=== PATIENT | male | born 1970 | race Caucasian/White ===

== ENCOUNTER 2022-11-05 15:34 | Emergency (ER) | payer BC, SELFPAY ==
[2022-11-05] VITALS (8 sets, daily range): BP systolic 111–153; BP diastolic 62–88; PULSE 74–98; RESP 14–20; TEMP 36.5; O2SAT 95–98; BMI 32.5
--- NOTE | 2022-11-05 15:31 | ECG_ITS ---
APPROVED REPORT Exam: Resting ECG HR:93 bpm ECG Measurements Heart Rate 93 AXES DE 165 P 20 QRSd 93 QRS 20 QT 339 T 44 QTc 389 Conclusion SINUS RHYTHM NORMAL ECG UNCONFIRMED REPORT Electronically signed by : Isidro Roche MD 11/05/2022 21:15:59
--- NOTE | 2022-11-05 15:44 | XR_ITS ---
PROCEDURE INFORMATION: Exam: XR Chest Exam date and time: 11/05/2022 4:07 PM Age: 51 years old Clinical indication: Pain; Chest pressure; Additional info: Chest pain TECHNIQUE: Imaging protocol: Radiologic exam of the chest. Views: 1 view. COMPARISON: CR CLAVR CLAVICLE-RT 04/26/2017 7:09 AM FINDINGS: Lungs: Unremarkable. No consolidation. Pleural spaces: Unremarkable. No pleural effusion. No pneumothorax. Heart/Mediastinum: Unremarkable. No cardiomegaly. Bones/joints: Unremarkable. IMPRESSION: No acute findings.
--- NOTE | 2022-11-05 15:46 | HMH.EDCP ---
Discharge Plan Disposition Patient Disposition: Home, Self-Care Condition: Good Prescriptions Prescriptions: No Action No Known Home Medications Activity Restrictions/Add. Instructions Additional Instructions/Restrictions: Return to the emergency department if you feel worse in any way. Follow-up with your primary care doctor in about 1 week even if you feel normal. Clinical Impressions Clinical Impression: Atypical chest pain Instructions Patient Instructions: DI for Atypical Chest Pain Discharge ED Provider: Jp Gruber Chest Pain HPI General Chief Complaint: Chest Pain Stated Complaint: chest pain Time Seen by Provider: 11/05/22 15:46 Mode of Arrival: Ambulatory Source of Information: Patient History of Present Illness HPI narrative: The patient presents to the emergency department complaining of a near syncopal episode followed by chest tightness. This happened approximately 1 PM today. He was cutting wood with a chainsaw. He has never had the symptoms in the past. He has no history of coronary artery disease. MD complaint: chest pain BLAS Score for Non-Stemi Age of Patient: 50-59 years old Heart Rate: 90-109 bpm Systolic Blood Pressure: 120-139 mmhg Serum Creatinine: 1.20-1.59 mg/dl CHF Killip Class: I-No CHF Other Risk Factors: None Non-Stemi Risk Score: 100 Related Data Home Medications Medication Instructions Recorded Confirmed No Known Home Medications 11/05/22 11/05/22 Allergies Allergy/AdvReac Type Severity Reaction Status Date / Time No Known Allergies Allergy Unverified 09/26/17 15:00 [facility] Disclaimer: The information contained in this section may have been updated after the patient was seen, as this information can be updated by other users. Social History Smoking Status: Never smoker alcohol intake: never current occupational status: employed Travel in the last 8 weeks: None ROS Obtained: Yes All systems reviewed & no additional complaints except as documented Physical Exam General General appearance: alert Head Head exam: atraumatic Eye Eye exam: Present normal appearance and PERRL; Absent scleral icterus ENT ENT exam: Present normal exam Neck Neck exam: Present normal inspection and full ROM; Absent tenderness or meningismus Chest Chest inspection: Present normal inspection and symmetric chest wall rise; Absent tenderness Respiratory Respiratory exam: Present normal lung sounds bilaterally; Absent respiratory distress or accessory muscle use Cardiovascular Cardiovascular exam: Present regular rate, normal rhythm and normal heart sounds Abdominal Exam Abdominal exam: Present soft and normal bowel sounds; Absent distention, tenderness, heel tap sign, Espinoza's sign, Rovsing's sign, tenderness at McBurney's Point or mass Extremities Exam Extremities exam: Present normal inspection and full ROM; Absent calf tenderness Back Exam Back exam: Present normal inspection; Absent tenderness, CVA tenderness (R) or CVA tenderness (L) Neurological Exam Neurological exam: Present alert and oriented X3 Psychiatric Psychiatric exam: Present normal affect and normal mood Skin Skin exam: Present warm, dry, intact and normal color Medical Decision Making Medical Records Medical records reviewed: Yes I reviewed the patient's medical records. Francisco Inquiry Pt receiving controlled substance: No Vital Signs: 11/05/22 15:35 11/05/22 16:00 11/05/22 16:31 Temperature 97.7 F Temperature Source Oral Pulse Rate 89 88 Pulse Rate [Apical] 98 H Respiratory Rate 18 14 14 Blood Pressure 153/88 H 116/71 Blood Pressure [Right Arm] 148/85 H Blood Pressure Mean 109 86 Blood Pressure Mean [Right Arm] 106 Blood Pressure Source [Right Arm] Automatic Cuff Blood Pressure Position [Right Arm] Sitting 02 Sat by Pulse Oximetry 95 96 95 Oxygen Delivery Method Room Air 11/05/22 17:00 11/05/22 17:30 11/05/22 18:00 Temperature Tem
[2022-11-05 16:14] LABS: Anion Gap 10.6 mEq/L (5-15); Blood Urea Nitrogen 17 mg/dl (9-20); Calcium 8.7 mg/dl (8.4-10.2); Carbon Dioxide 25 mmol/L (22.0-30.0); Chloride 106 mmol/L (98-107); Creatinine Clearance Estimated 103 mL/min (50-200); Estimated Glomerular Filt Rate 64 ml/min (>60); GFR (African American) 77 ML/MIN (>60); Glucose 124 mg/dl (74-100); Potassium 3.6 mmoL/L (3.5-5.1); Sodium 138 mmol/L (136-145)
[2022-11-05 16:15] LABS: Basophils # 0.1 K/mm3 (0-0.2); Basophils % 0.6 % (0.1-2.0); Eosinophils # 0.1 K/mm3 (0.0-0.4); Eosinophils % 0.8 % (0.1-12.0); Hematocrit 46.2 % (42.0-52.0); Lymphocytes # 1.3 K/mm3 (0.7-4.5); Lymphocytes % 8.2 % (10-50); Mean Corpuscular HGB Conc 32.5 g/dL (31.8-35.4); Mean Corpuscular Hemoglobin 28.9 pg (27.0-31.2); Mean Corpuscular Volume 88.9 fl (80-94); Mean Platelet Volume 9.7 fl (7.4-10.4); Monocytes # 0.6 K/mm3 (0.1-1.0); Monocytes % 4.1 % (1.7-9.3); Neutrophils # 13.4 K/mm3 (1.8-7.8); Neutrophils % 86.3 % (37.0-80.0); Platelet Count 289 K/mm3 (142-424); Red Blood Count 5.19 M/mm3 (4.60-6.20); Red Cell Distribution Width 13.4 % (11.5-17.5); White Blood Count 15.5 K/mm3 (4.8-10.8)
[2022-11-05 16:19] LABS: MANUAL DIFFERENTIAL MANUAL DIFFERENTIAL (MANUAL DIFF)
[2022-11-05 16:26] LABS: Troponin I 0.02 ng/ml (0.00-0.034)
[2022-11-05 17:01] LABS: Lymphocytes % 9 % (10-50); Monocytes % 7 % (2-9); Neutrophils % 84 % (42-76); Total Cells Counted 100
[2022-11-05 17:04] LABS: Platelet Estimate Normal; RBC Morphology Normal
--- NOTE | 2022-11-05 19:09 | PC.NURSE ---
report given to carlton chase and carlton giraldo at shift change
[2022-11-05 19:39] LABS: Troponin I 0.02 ng/ml (0.00-0.034)
== END 2022-11-05 19:51 | disposition home or self-care (01) ==
PROVIDERS: Emergency Provider Emergency Medicine; PCP Family Medicine
DX: R07.89 Other chest pain (principal)
CPT/HCPCS: 36415; 71045; 80048; 84484; 85007; 85025; 93005; 99285

== ENCOUNTER → 2022-11-07 10:37 | Outpatient (CLI) | payer BC, SELFPAY ==
[2022-11-07 12:16] LABS: Alanine Aminotransferase 28 U/L (12-78); Albumin Level 4.3 g/dl (3.5-5.0); Alkaline Phosphatase 56 U/L (38-126); Aspartate Amino Transferase 31 U/L (17-59); Bilirubin,Direct 0.2 mg/dl (0.0-0.4); Bilirubin,Indirect 0.3 mg/dL (0.0-0.9); Bilirubin,Total 0.5 mg/dl (0.2-1.3); Bilirubin,Unconjugated 0.3 mg/dL (0.0-1.1); Chol/HDL Ratio 4.6 (1-3.5); Cholesterol 188 mg/dl (140-200); HDL Cholesterol 41 mg/dl (40-60); Total Protein,Serum 7.1 g/dl (6.3-8.2); Triglycerides 226 mg/dl (30-150); VLDL Cholesterol 45 mg/dL (0-40)
[2022-11-07 12:28] LABS: Direct LDL Cholesterol 98.31 mg/dL (100-129)
== END ==
PROVIDERS: PCP Family Medicine; Visit Provider Nurse Practitioner
DX: R07.89 Other chest pain (principal); R55 Syncope and collapse; R94.31 Abnormal electrocardiogram [ECG] [EKG]
CPT/HCPCS: 36415; 80061; 80076

== ENCOUNTER → 2022-11-17 06:08 | Outpatient (CLI) | payer BC, SELFPAY ==
--- NOTE | 2022-11-17 06:10 | CA_ITS ---
APPROVED REPORT Exam: Exercise Treadmill Technologist: Nereyda Flores, Ht: 5 ft 9 in Wt: 225 lbs BSA: 2.17 m2 HR: 62 bpm BP: 128/77 mmHg Medical History Medications: Omeprazole,,,,, Stress Test Details Test: Wallace HR Resting HR: 68 bpm Max Heart Rate (APMHR): 168.638226 bpm Max HR Achieved: 153 bpm Target HR (85% APMHR): 142.006449 bpm % of APMHR: 91.07 Recovery HR: 89 bpm BP Resting BP: 122.0/83.0 mmHg Max BP: 207.0/82.0 mmHg Recovery BP: 149.0/86.0 mmHg ECG Clinical Exercise duration: 09:00 min Highest Stage Achieved: III Exercise capacity: 10.1 METs Stress ECG Conclusion Symptoms: SOA w/ exercise. No chest pain. Arrhythmias/Ectopy: PVC noted Test Summary REST . . . . . . . Sitting REST . . . . . . . Standing REST 08:16 0.0 0.0 68 . 122/ 83 . . Stage 1 01:00 10.0 1.7 91 . . . . Stage 1 02:00 10.0 1.7 96 . . . . Stage 1 03:00 10.0 1.7 98 . 150/ 80 . . Stage 2 01:00 12.0 2.5 109 . . . . Stage 2 02:00 12.0 2.5 117 . . . . Stage 2 03:00 12.0 2.5 120 . 172/ 88 . . Stage 3 01:00 14.0 3.4 141 . . . . Stage 3 . . . . . . . Cardiolite injected Stage 3 02:00 14.0 3.4 147 . . . . Stage 3 03:00 14.0 3.4 152 . . . Stop exercise at 09:00 RECOVERY 01:00 0.0 0.0 126 . . . . RECOVERY 02:00 0.0 0.0 107 . . . . RECOVERY 03:00 0.0 0.0 95 . 207/ 82 . . RECOVERY 04:00 0.0 0.0 93 . 166/ 79 . . RECOVERY 05:00 0.0 0.0 90 . 166/ 79 . . RECOVERY 06:00 0.0 0.0 88 . 156/ 83 . . RECOVERY 06:26 0.0 0.0 90 . 149/ 86 . . Electronically signed by : Saturnino Enriquez MD 11/18/2022 09:38:47
--- NOTE | 2022-11-17 06:10 | NM_ITS ---
APPROVED REPORT Exam: Nuclear Stress Test Indication: CHEST PAIN..SHORT OF BREATH Patient Location: Outpatient Stress Tech: Nereyda Ambrose [place] Tech:BECCA Fallon RT(R)(N) Ht: 5 ft 9 in Wt: 220 lbs HR: 68 bpm BP: 122/83 mmHg BSA: 2.15 m2 TID: 0.94 BMI: 32.4 History: CHEST PAIN..SHORT OF BREATH Procedure: Patient exercised on Wallace protocol 9 minutes and sec, resting heart rate 68 bpm, resting blood pressure 122/83 mmHg, with exercise maximum heart rate achived was 153 bpm which is 91 % of the maximum predicted heart rate and blood pressure was 207/82 mmHg. Patient denied any complaint of chest pain. Patient has Good exercise capacity, achieved 10.1 METs of workload on treadmill, the blood pressure response to exercise was Hypertensive. Electrocardiogram Resting electrocardiogram shows sinus rhythm, with exercise there is less than 1.[address] segment depression noted from the baseline EKG. The EKG portion of the exercise Myoview is negative for ischemia. Cardiac Stress and Resting SPECT Images: Cardiac Stress and Resting SPECT images were obtained using technetium 99m Myoview 32.5 mCi stress and 10.98 mCi at rest. Gated SPECT analysis of segmental wall motion and calculation of the ejection fraction also done. Prone images were also obtained. Cardiac stress and rest SPECT images show uniform myocardial activity without segmental perfusion abnormality, compared to dry ejection fraction is 58% with no regional wall motion abnormality, right ventricle is mildly enlarged with normal contractility. Conclusion: 1. The EKG portion of the exercise Myoview is negative for ischemia, patient has good exercise capacity achieved 10.1 METs of workload on treadmill, the blood pressure response to exercise was hypertensive, there was no exercise-induced chest discomfort. 2. No scintigraphic evidence of reversible ischemia seen, computer drive ejection fraction is 58% with no regional wall motion abnormality, right ventricle is mildly enlarged with normal contractility. 3. Normal myocardial perfusion imaging except for hypertensive blood pressure response with exercise and right ventricular dilatation seen on perfusion imaging. Electronically signed by : Saturnino Enriquez MD 11/18/2022 09:49:11
--- NOTE | 2022-11-17 06:10 | CA_ITS ---
APPROVED REPORT EXAM: Comprehensive 2D, Doppler, and color-flow Echocardiogram Nibbler Operator: Ashley Low RVT Ht: 5 ft 9 in Wt: 225lbs BSA: 2.17 BP: 125/87 mmHg Indications: CP,ABN EKG,SOA 2D Dimensions LVOT 2.17 cm (M/F) 1.5-2.5 LA Volume 38.10 mL LA Volume Index 17.56 mL/m2 (M/F) 16-34 M-Mode Dimensions RVDd 3.49 cm (0.9-2.6) LA Diam 3.56 cm (1.9-4.0) LVDd 4.67 cm (3.5-5.7) Ao Diam 3.13 cm (2.0-3.7) LVDs 3.00 cm (3.5-5.7) IVSd 0.76 cm (0.6-1.1) PWd 0.72 cm (0.6-1.1) EF (Teich) 65.30% FS 35.80% EDV (Teich) 100.80 mL TAPSE 2.30 (<1.7) ESV (Teich) 35.00 mL LV Diastology E Decel Time 150.00 (160-240 msec) E/A Ratio 0.8 MED E' 6.40 (< 7 cm/sec) E'/MED E' Ratio 10.25 (>14) LAT E' 7.80 (<10 cm/sec) E/LAT E' Ratio 8.41 (>14) Aortic Valve AO Peak GR. 3.80 mmHg Mitral Valve MV E Max Sai. 66.00 (40-130 cm/s) MV A Velocity 84.00 (40-130 cm/s) E/A Ratio 0.78 MV Decel. Time 150.00 (160-240 ms) MV PHT 44.00 ms Pulmonary Valve PV Peak Velocity 81.00 (50-150 cm/s) Left Ventricle Left atrium is mildly enlarged, left medical normal size, mild concentric left ventricular hypertrophy, estimated ejection fraction of 55% with no regional wall motion abnormality. Grade 1 diastolic dysfunction seen without tissue Doppler evidence of restricted atrial pressure. Right Ventricle Right atrium and right ventricular normal size and contractility. Aortic Valve Aortic valve is grossly normal there is no aortic stenosis aortic insufficiency. Mitral Valve Motor alaniz grossly normal, there is trace mitral regurgitation. Tricuspid Valve Tricuspid valve grossly normal, there is trace tricuspid regurgitation, tricuspid regurgitation jet plus is inadequate for calculation of the right ventricular systolic pressure. Pulmonic Valve Pulmonic valve is poorly visualized. Great Vessels Aortic root is normal size. Inferior vena cava is poorly visualized. Pericardium No significant pericardial effusion noted. Conclusion 1. Mildly enlarged left atrium, normal left ventricular size, mild concentric left ventricular hypertrophy, estimated ejection fraction of 45% with no regional wall motion abnormality, grade 1 diastolic dysfunction seen without tissue Doppler evidence of restricted atrial pressure. 2. Trace mitral and tricuspid regurgitation. 3. No significant pericardial effusion noted. 4. Inferior vena cava is poorly visualized. Electronically signed by : Saturnino Enriquez MD 11/18/2022 17:39:25
== END ==
LOC: RAD 06:10
PROVIDERS: PCP Family Medicine; Visit Provider Nurse Practitioner
DX: R07.89 Other chest pain (principal); R55 Syncope and collapse; R94.31 Abnormal electrocardiogram [ECG] [EKG]
CPT/HCPCS: 78452; 93017; 93306; A9502

== ENCOUNTER 2023-05-11 10:18 | Emergency (ER) | payer BC, SELFPAY ==
[2023-05-11 10:19] VITALS: BP 136/90; PULSE 60; RESP 18; TEMP 36.8; O2SAT 98; BMI 32.5
--- NOTE | 2023-05-11 11:00 | EXP.UTC ---
Discharge Plan Disposition Patient Disposition: Home, Self-Care Condition: Good Prescriptions Prescriptions: New cyclobenzaprine 10 mg Tablet 10 mg PO BID PRN (Reason: Muscle Spasm) Qty: 20 0RF methylprednisolone 4 mg Tablets,Dose Pack 4 mg PO DIRECTED Qty: 21 0RF No Action omeprazole 20 mg tablet,delayed release (DR/EC) 20 mg PO DAILY losartan 50 mg tablet 50 mg PO DAILY Qty: 30 2RF Referrals Follow up/Referrals: Provider,Referral, MD [Primary Care Provider] - See instructions Activity Restrictions/Add. Instructions Additional Instructions/Restrictions: Go home and rest. It would be best if you rested tomorrow too. No heavy lifting. No twisting. Take the oral medications as directed. The muscle relaxer (cyclobenzaprine--Flexeril) will make you drowsy, so don't drive or operate heavy machinery after taking it. If you have other muscle relaxers that you take, make sure you don't take both. This would be too much. Don't start the oral steroids (medrol dose pack) until tomorrow, since you had the shots in here today. Follow up with your regular doctor. GO TO THE ER FOR ANY WORSENING SYMPTOMS OR CONCERN, ESPECIALLY BOWEL OR BLADDER ISSUES, SADDLE AREA NUMBNESS, FEVER, ETC Clinical Impressions Clinical Impression: Bursitis of right shoulder, Neck pain Stand Alone Forms Stand Alone Forms: Work/School Release Instructions Patient Instructions: Ketorolac, Methylprednisolone Injection Discharge ED Provider: Nima Vargas [facility] General Stated complaint: Rt shoulder pain, no accident Time Seen by Provider: 05/11/23 11:00 History of Present Illness Provider Complaint: He c/o right shoulder pain for the past 3 days. He denies any injury. He has had multiple episodes of similar pain in the past r/t an old rotator cuff injury and surgery. Related Data Home Medications Medication Instructions Recorded Confirmed omeprazole 20 mg tablet,delayed 20 mg PO DAILY 11/07/22 11/23/22 release Previous Rx's Medication Instructions Recorded losartan 50 mg tablet 50 mg PO DAILY #30 tabs 11/23/22 cyclobenzaprine 10 mg tablet 10 mg PO BID PRN Muscle Spasm #20 05/11/23 tabs methylprednisolone 4 mg tablets in 4 mg PO DIRECTED #21 tabs 05/11/23 a dose pack Allergies Allergy/AdvReac Type Severity Reaction Status Date / Time No Known Allergies Allergy Unverified 11/23/22 09:01 [facility] Disclaimer: The information contained in this section may have been updated after the patient was seen, as this information can be updated by other users. Medical History (Updated 05/11/23 @ 11:31 by Nima Vargas APRN) Abnormal electrocardiogram [ECG] [EKG] Chest pain Hypertension Near syncope Social History Smoking Status: Never smoker alcohol intake: never current occupational status: employed Travel in the last 8 weeks: None ROS Obtained: Yes All systems reviewed & no additional complaints except as documented Constitutional Constitutional: Denies chills and Denies fever(s) Eyes Eyes: Denies eye discharge ENT Ears, Nose, Mouth, and Throat: Denies dizziness, Denies otalgia and Denies sore throat Cardiovascular Cardiovascular: Denies chest pain Respiratory Respiratory: Denies shortness of breath, Denies chest congestion, Denies cough, Denies stridor and Denies wheezing Gastrointestinal Gastrointestingal: Denies nausea or vomiting Musculoskeletal Musculoskeletal: Reports as per HPI Integumentary/Breasts Skin/Breast: Denies rash Neurologic Neurologic: Denies dizziness and Denies paresthesias Allergic/Immunologic Allergic/Immunologic: Denies wheezing Physical Exam General General appearance: alert and in no apparent distress Head Head exam: atraumatic, normocephalic and normal inspection Eye Eye exam: Present normal appearance, PERRL and EOMI ENT ENT exam: Present normal exam, normal oropharynx,
[2023-05-11 11:37] VITALS: BP 136/90; PULSE 60; RESP 18; TEMP 36.8; O2SAT 98
== END 2023-05-11 11:38 | disposition home or self-care (01) ==
PROVIDERS: Emergency Provider Nurse Practitioner Family
DX: M75.51 Bursitis of right shoulder (principal); M54.2 Cervicalgia; I10 Essential (primary) hypertension
CPT/HCPCS: 96372; 99204; 99212; G0463

== ENCOUNTER 2023-12-20 10:06 | Day surgery (SDC) | payer BC, SELFPAY ==
[2023-12-19 14:06] VITALS: BMI 33.2
[2023-12-20] VITALS (7 sets, daily range): BP systolic 101–135; BP diastolic 56–86; PULSE 61–77; RESP 16–18; TEMP 36.1–36.9; O2SAT 95–99
[2023-12-20] MEDS: LACTATED RINGERS 1000ML 1,000 ML 25 ML IV (11:17)
--- NOTE | 2023-12-20 12:02 | EXP.ANES.CKL ---
[facility] Disclaimer: The information contained in this section may have been updated after the patient was seen, as this information can be updated by other users. Medical History Hypertension Chest pain Abnormal electrocardiogram [ECG] [EKG] Near syncope Surgical History History of colonoscopy History of repair of right rotator cuff Family History Other No significant family history Social History Smoking Status: Never smoker alcohol intake: never substance use type: denies use current occupational status: employed Travel in the last 8 weeks: None [facility] Anesthesia Checklist Patient Identification Patient Identification: Arm Band and Verbal (Name & ) Structural Data Admitted From: Home Planned Operative Procedure/s: EGD/Colonoscopy Consent for Planned Operative Procedure(s) Verified: Yes NPO Status Verified Time NPO: 00:00 Additional verifications Anesthesia Reactions: No Airway Assessment Mallampati Score:: Class III C-Spine Mobility Assessed: Yes TMJ Mobility Assessed: Yes Dentition: Good Dentition Neurological Assessment Level of Consciousness: Awake Hx Seizures: No Numbness or tingling in extremities: No Anesthesia Plan Anesthesia Risk discussed: Yes Anesthesia Plan: Verified ASA Class: II Anesthesia Type: MAC
--- NOTE | 2023-12-20 12:35 | P.PCN_ITS ---
Procedure: Date: 12/20/23 Patient Date of :: 1970 Procedure Performed:: EGD Indications:: The patient is a 53-year-old who presents for EGD evaluation of chronic heartburn. Performing Provider:: Steve Caban MD Referring Provider:: Jen Ruiz APRN. Gastroenterology Sedation:: See RN records Procedure:: After placing the patient in the left lateral decubitus position, the colonoscopy was gently inserted into the rectum and under direct visualization advanced to the cecum which was identified by transillumination in the right lower quadrant, identification of the ileocecal valve, appendiceal orifice, and cecal strap. Color, texture, mucosa, and anatomy of the colon were carefully examined with the scope. Findings:: There was finding of Zimmerman's esophagus in the distal esophagus. Baldwin classification C1M3. Biopsies were obtained with a cold forceps for histology. The GE junction was measured at 35 cm there is a small hiatal hernia. There was inflammation of the stomach characterized by mild inflammation in the antrum and body. There were a few small fundic gland polyps in the body of the stomach. Biopsies were obtained with a cold forceps. The duodenum appeared normal Impression Zimmerman's esophagus. C1 M3 Small hiatal hernia Mild fundic gland polyp Mild gastritis Recommendations:: Await pathology result Continue prescribed PPI once daily Recommend a repeat EGD in 3 years Complications:: None Estimated blood obtained (mL): 0 Colonoscopy Component Colonoscopy Component Was a colonoscopy performed during today's procedure?: No
--- NOTE | 2023-12-20 12:40 | HMH.SCOPE ---
Procedure: Date: 12/20/23 Patient Date of :: 1970 Procedure Performed:: Colonoscopy Indications:: The patient is a 53-year-old who presents for surveillance colonoscopy for having a history of polyps in the past. Patient reports having had a colonoscopy more than 10 years ago and had polyps removed. There is no colon cancer in the family. Performing Provider:: Steve Caban MD Referring Provider:: Jen Ruiz APRN. Gastroenterology Sedation:: See RN records Procedure:: After placing the patient in the left lateral decubitus position, the colonoscopy was gently inserted into the rectum and under direct visualization advanced to the cecum which was identified by transillumination in the right lower quadrant, identification of the ileocecal valve, appendiceal orifice, and cecal strap. Color, texture, mucosa, and anatomy of the colon were carefully examined with the scope. Findings:: The quality of the bowel preparation was excellent. There was a small sessile polyp (4 to 6 mm) in the hepatic flexure. The polyp was removed by cold snare polypectomy. The polyp was retrieved. There was a diminutive polyp in the sigmoid colon. The polyp was removed with cold forceps. There were a few scattered diverticula in the ascending colon. The remaining colon appeared normal. On retroflexion view there were internal hemorrhoids seen in the rectum Impression: Polyp of hepatic flexure and sigmoid colon Diverticulosis Recommendations:: Await pathology results Repeat colonoscopy in 5 years Complications:: None Estimated blood obtained (mL): 0 Colonoscopy Component Colonoscopy Component Was a colonoscopy performed during today's procedure?: Yes Recommended follow up colonoscopy of at least 10 years?: Yes
== END 2023-12-20 13:40 | disposition home or self-care (01) ==
PROVIDERS: Visit Provider Internal Medicine
PROC: 0DJ08ZZ Inspection of Upper Intestinal Tract, Via Natural or Artificial Opening Endoscopic (ICD-10-PCS; CPT 43235; principal; 2023-12-20 11:30)
DX: R12 Heartburn (principal); K22.70 Barrett's esophagus without dysplasia; K44.9 Diaphragmatic hernia without obstruction or gangrene; K29.50 Unspecified chronic gastritis without bleeding; Z12.11 Encounter for screening for malignant neoplasm of colon; Z86.010 Personal history of colon polyps; K64.8 Other hemorrhoids; K57.30 Diverticulosis of large intestine without perforation or abscess without bleeding; D12.3 Benign neoplasm of transverse colon; D12.5 Benign neoplasm of sigmoid colon
CPT/HCPCS: 43239; 45385; 45380

== ENCOUNTER 2025-06-17 15:25 | Outpatient (CLI) | payer BC, SELFPAY ==
--- OUTSIDE RECORDS SUMMARY | 2025-06-17 15:28 | XMS_ITS | Clinical Summary ---
Author Organization [facility] Address [address] [place] [address] Phone Care Team Providers Care Primary Care Sales Representative Name Role Phone Bola GUTIERREZ MD, Michael Leach Primary Care P rovider Allergies No known active allergies Medications oxyCODONE-acetam inophen (PERCOCET) 5-325 mg Oral Tablet Take 1-2 Tabs by mouth every 4 hours as needed for Pain. 72 Tab 06/13/2017 Active Surgical History Surgery Date Site/Laterality Comments COLONOSCOPY SHOULDER ARTHROSCOPY 06/13/2017 Shoulder/Right RIGHT SHOULDER ARTHROSCOPY ROTATOR CUFF REPAIR, ARTHROSCOPIC SUBACROMIAL DECOMPRESSION, ACROMIOPLASTY, BICEPS TENODESIS ARTHROSCOPIC, SUBSCAPULARIS DEBRIDEMENT, LABRAL DEBRIDEMENT; Surgeon: Vasu Orozco MD; Location: [facility] MAIN OR; Service: Orthopedics Medical devices from this surgery are in the Medical Devices section. Social History Tobacco Use Types Packs/Day Years Used Date Smoking Tobacco: Never Smokeless Tobacco: Never Alcohol Use Standard Drinks/Week Comments Yes 0 (1 standard drink = 0.6 oz pur e alcohol) occ Sex and Gender Information Value Date Recorded Sex Assigned at Not on file Legal Sex Male 6:17 AM EDT Gender Identity Not on file Sexual Orientation Not on file Obstetrics History Last Filed Vital Signs Vital Sign Reading Time Taken Comments Blood Pressure 107/74 06/13/2017 12:52 PM EDT Pulse 74 06/13/2017 12:52 PM EDT Temperature 36.1 C (97 F) 06/13/2017 12:06 PM EDT Respiratory Rate 18 06/13/2017 12:52 PM EDT Oxygen Saturation 94% 06/13/2017 12:52 PM EDT Inhaled Oxygen Concentration - - Weight 90.3 kg (199 lb) 06/13/2017 7:55 AM EDT Height 175.3 cm (5' 9 ) 06/09/2017 1:04 PM EDT Body Mass Index 29.39 06/09/2017 1:04 PM EDT Plan of Treatment Health Maintenance Due Date Last Done Comments Annual Wellness Exam 1973 DTaP/TDaP/Td (1 - Tdap) 1989 Hepatitis B Vaccine (1 of 3 - 19+ 3-dose series) 1989 Cologuard 2015 Colon Cancer Screening 2015 Colonoscopy 2015 FIT 2015 Sigmoidoscopy 2015 Virtual Colonography 2015 Pneumococcal Vaccine 50+ (1 of 1 - PCV) 2020 Zoster (1 of 2) 2020 COVID-19 Vaccine (1 - 2023-2 5 season) 2025 Influenza Vaccine (#1) 2025 Meningococcal B Vaccine Aged Out No l onger eligible based on patient's age to complete this topic Medical Devices Implanted Type Area Marketing Traffic Manager Device Identifier Shelf Expiration Date Model / Serial / Lot Healicoil Regenesorb Suture [place] 5.5mm W/3 Ultrabraid Sutures - [id number] Implanted:Qty: 1 on 06/13/2017 by Vasu Orozco MD at [facility] Right: Shoulder [employer]:ORTHO 03/10/2019 [id number] / / [id number] Insurance PPO * Guarantor: Artur Wheatley Account Type Relation to Patient Date of Phone Billing Address [place] Personal Family Self Care Teams Primary Care Sales Representative Relationship Specialty Start Date End Date Michael Plaza III, MD [address] [place] [address] PCP - General Family Medicine 06/08/17
[2025-06-17 16:48] LABS: Alanine Aminotransferase 24 U/L (12-78); Albumin Level 4.0 g/dl (3.5-5.0); Albumin/Globulin Ratio 1.4 (1.1-1.8); Alkaline Phosphatase 61 U/L (38-126); Anion Gap 13.5 mEq/L (5-15); Aspartate Amino Transferase 26 U/L (17-59); Bilirubin,Total 0.4 mg/dl (0.2-1.3); Blood Urea Nitrogen 17 mg/dl (9-20); Calcium 9.4 mg/dl (8.4-10.2); Carbon Dioxide 24 mmol/L (22.0-30.0); Chloride 104 mmol/L (98-107); Creatinine,Serum 0.80 mg/dl (0.66-1.25); Estimated Glomerular Filt Rate 101 ml/min (>60); GFR (African American) 122 ML/MIN (>60); Globulin 2.8 g/dL (1.3-3.2); Glucose 96 mg/dl (74-100); Potassium 4.5 mmoL/L (3.5-5.1); Sodium 137 mmol/L (136-145); Total Protein,Serum 6.8 g/dl (6.3-8.2)
== END 2025-06-17 23:59 | disposition home or self-care (01) ==
LOC: LAB 15:26
PROVIDERS: PCP Family Medicine; Visit Provider Nurse Practitioner Family
DX: K76.0 Fatty (change of) liver, not elsewhere classified (principal)
CPT/HCPCS: 36415; 80053

== ENCOUNTER 2025-06-21 14:02 | Outpatient (CLI) | payer BC, SELFPAY ==
--- OUTSIDE RECORDS SUMMARY | 2025-06-21 14:04 | XMS_ITS | Clinical Summary ---
Author Organization [facility] Address [address] [place] [address] Phone Care Team Providers Care Real Estate Associate Attorney Name Role Phone Bola GUTIERREZ MD, Michael [...] LABRAL DEBRIDEMENT; Surgeon: Vasu Orozco MD; Location: [facility]; Service: Orthopedics Medical devices from [...] this topic Medical Devices Implanted Type Area Manufacturing Engineer Device Identifier Shelf Expiration Date Model / Serial / Lot Healicoil Regenesorb Suture [place] 5.5mm W/3 Ultrabraid Sutures - [id number] Implanted:Qty: 1 on 06/13/2017 by Vasu Orozco MD at [facility] Right: Shoulder [employer]:ORTHO 03/10/2019 [id number] / / [id number] Insurance PPO * Guarantor: Artur Wheatley Account Type Relation to Patient Date of Phone Billing Address [place] Personal Family Self Care Teams Real Estate Associate Attorney Relationship Specialty Start Date End Date Michael Plaza III, MD [address] [place] [address] PCP - General Family Medicine 06/08/17
[2025-06-24 12:13] LABS: Pancreatic Elastase, Fecal >800 (>200)
== END 2025-06-21 23:59 | disposition home or self-care (01) ==
LOC: LAB.DROPOF 14:02
PROVIDERS: Visit Provider Nurse Practitioner Family
DX: R14.0 Abdominal distension (gaseous) (principal)
CPT/HCPCS: 82653